=== PATIENT | female | born 1995 | race Caucasian/White ===

== ENCOUNTER 2025-06-06 09:33 | Emergency (ER) | payer OTHER, SELFPAY ==
[2025-06-06 10:03] VITALS: BP 112/69; PULSE 74; RESP 18; TEMP 36.4; O2SAT 98; BMI 28.3
--- NOTE | 2025-06-06 10:03 | ED.FEVER ---
HPI - Fever General Chief Complaint: Upper Respiratory Symptoms Stated Complaint: fever, cough Time Seen by Provider: 06/06/25 10:28 Source: patient Mode of arrival: ambulatory Limitations: no limitations History of Present Illness ED Provider: Reece Frankel HPI Narrative: 30 yold female 10 weeks presents to the ED for coughing, nausea and fevers. patient states no abdominal pain, vomitting, dysuria, hematuria, or vaginal bleeding Related Data Previous Rx's ?Medication ?Instructions ?Recorded pyridoxine (vitamin B6) 10 mg 10 mg PO TID PRN nausea and 06/06/25 tablet vomiting #15 tabs Allergies Allergy/AdvReac Type Severity Reaction Status Date / Time No Known Allergies Allergy Verified 06/06/25 10:04 Review of Systems Review of Systems: Coughing and fevers Yes all other systems are reviewed and are negative [facility] Social History Social History Advance Directives: No Advance Directives Information Provided: Yes Physical Exam Vital Signs: Vital Signs: Last Vital Signs Temp 97.5 F 06/06/25 10:03 Pulse 74 06/06/25 10:03 Resp 18 06/06/25 10:03 BP 112/69 06/06/25 10:03 Pulse Ox 98 06/06/25 10:03 O2 Del Method Room Air 06/06/25 10:03 BMI result Body Mass Index 28.3 Const: General: cooperative, healthy appearing, comfortable, no acute distress, well developed, alert, awake and Physically active Orientation/consciousness: patient oriented x3 HEENT: Head: Yes normal to inspection, Yes No palpable skull fracture present, Yes normocephalic and Yes atraumatic Throat: Yes posterior oropharynx normal, Yes tonsils normal and Yes uvula midline Eyes: General: appearance normal, both eyes and all related structures Neck: Neck: Yes normal visual inspection, Yes full ROM, Yes no lymphadenopathy, Yes no meningeal signs, Yes trachea midline, Yes supple, No anterior neck swelling and No tender Chest: Chest palpation & inspection: normal inspection of the chest and normal palpation of entire chest wall Resp: Effort & Inspection: normal respiratory effort and able to speak in complete sentences Cardio: Jugular venous distension: no JVD Heart sounds: S1 normal heart sound present and S2 normal heart sound present GI: Inspection: Yes normal to inspection Palpation (GI): Soft to palpation, not firm, nontender, no guarding and not rigid : General: Yes no CVA tenderness Back/Spine/Pelvis: Back: no CVA tenderness and No back tenderness Skin: General skin exam: no rashes or lesions noted, elasticity normal and turgor normal Neuro: General: patient oriented x3, gait normal, tone normal, moves all extremities, Normal light touch and pain sensation, no meningeal signs, no focal motor deficits, CN's II-XI intact bilaterally and normal sensation to monofilament Extrem: General: Yes normal to inspection, Yes full ROM and Yes capillary refill normal Psych: Appearance: grossly normal, well kempt and not disheveled Course Course Course Narrative: 30-year-old female with past no medical history here with complaint of fevers, cough, headache she did take Tylenol this morning. Her fever has been 101. She did not get her flu or COVID vaccine. Her 2 children are also sick. There is no recent travel or procedures. She is 10 weeks and falls at [facility] but has no OBGYN related complaints. At this time we will obtain viral panel. this is a RAPID medical screening exam the rest of the history and physical exam is to be done by the main provider. 10:04 AM 06/06/2025 (IVY CARR): Medical Decision Making Medical Decision Making [facility] Narrative: 30 yold female 10 weeks pregantn with URI symptoms. no abdominal complaints or symptoms. swabs ordered. 11:20am: patient all swabs are negative. no RANCH HAND LIVESTOCK/abdominal complatins. Vital sign stable. Not suspecting PE, ecotpic , pneumonia, CHF, GA, kidney stones, pyelonephritits, hyperemesis, or any other life threatening etiology. patient exapline worrisome signs and informed to return to the ED if she has them Differential Diagnosis Differential Diagnoses: The differential diagnosis associated with the presentation includes (covid, influenza, strep, rsv) Admission/Observation Consideration of admission/observation: Escalation of care including admission/observation considered Lab Data [facility] Lab Attestation statement: I reviewed the patient's lab results. Labs: Lab Results 06/06/25 Range/Units 10:11 Influenza Type A (PCR) NEGATIVE (Negative) Influenza Type B (PCR) NEGATIVE (Negative) RSV RNA Qual (PCR) NEGATIVE (Negative) SARS-CoV-2 RNA (RT-PCR) NEGATIVE (Negative) S. pyogenes GrpA BOBO Negative (Negative) Independent Historian Clinical information obtained from an independent historian. History obtained from or confirmed by: Other (patient) Prescription Management I considered prescription management with: Other Discharge Plan Discharge Clinical Impression: Upper respiratory infection Patient Disposition: Home, Self-Care Instructions: Upper Respiratory Infection (ED) Additional Instructions: Recommend follow up with PCP and OBGYN. Return to the ED for any chest pain, shortness of breath, abdominal pain, flank pain, vaginal bleeding, weakness, intractalbe fever, or any other concerning symptoms. Prescriptions: New pyridoxine (vitamin B6) 10 mg tablet 10 mg PO TID PRN (Reason: nausea and vomiting) Qty: 15 0RF Stand Alone Forms: Work/School Release Discharge Date/Time: 06/06/25 11:35 Print Language: Yakut
[2025-06-06 10:39] LABS: IDNOW Serial# 58CA691E; Strep A Nucleic Acid Negative (Negative)
[2025-06-06 11:11] LABS: Resp Syncy Virus RNA Qual PCR NEGATIVE (Negative); SARS COV2 PCR INHOUSE NEGATIVE (Negative)
--- OUTSIDE RECORDS SUMMARY | 2025-06-06 15:13 | XMS_ITS | Clinical Summary ---
Author Organization [facility] Prior to 11/19/[address] [place] [id number] Care Team Providers Care Adjunct Teacher Name Role Phone Unavailable Primary Care Provider Unavailabl e Medications Medication Sig Dispensed Refills Start Date End Date Status ondansetron (ZOFRAN-ODT) 4 MG disintegrating tablet Take 1 tablet (4 mg total) by mouth every 8 (eight) hours as needed for nausea. 12 tablet 0 02/04/2023 Active labetalol (NORMODYNE) 100 MG tablet Take 1 tablet (100 mg total) by mouth 2 (two) times a day. 40 tablet 0 02/04/2023 Active Active Problems No known active problems Social History Tobacco Use Types Packs/Day Years Used Date Smoking Tobacco: Never Assessed Sex and Gender Information Value Date Recorded Sex Assigned at Female 02/04/2023 8:07 PM EDT Gender Identity Not on file Sexual Orientation Not on file Job Start Date Occupation Industry Not on file Not on file Not on file Last Filed Vital Signs Vital Sign Reading Time Taken Comments Blood Pressure 118/80 02/04/2023 10:26 PM EDT Pulse 98 02/04/2023 10:26 PM EDT Temperature 36.5 C (97.7 F) 02/04/2023 10:26 PM EDT Respiratory Rate 18 02/04/2023 10:26 PM EDT Oxygen Saturation 99% 02/04/2023 10:26 PM EDT Inhaled Oxygen Concentration - - Weight 61.2 kg (135 lb) 02/04/2023 7:56 PM EDT Height 154.9 cm (5' 1 ) 02/04/2023 7:56 PM EDT Body Mass Index 25.51 02/04/2023 7:56 PM EDT Plan of Treatment Health Maintenance Due Date Last Done Comments Hepatitis B Vaccines (1 of 3 - 3-dose series) 1993 Hepatitis C Screening 1993 Depression Screening 2005 Preventative Health Evaluation 2011 Cervical Cancer Screening (Pap Smear) 2014 COVID-19 Vaccine (3 - 2024-2 6 season) 2025 12/13/2020, 11/15/2020 Influenza Vaccine (#1) 2025 DTap / Tdap / Td (2 - Td or Tdap) 09/05/2030 09/05/2020 Pneumococcal Vaccine Aged Out No long er eligible based on patient's age to complete this topic RSV Ped < 20 months Aged Out No longe r eligible based on patient's age to complete this topic
--- OUTSIDE RECORDS SUMMARY | 2025-06-06 15:13 | XMS_ITS | Clinical Summary ---
Author Organization [facility] Address [address] [place] [address] Phone Care Team Providers Care Weight Loss Consultant Name Role Phone Suzy Banda MD Primary Care Provider [phone] Allergies No known active allergies Surgical History Surgery Date Site/Laterality Comments WISDOM TOOTH EXTRACTION PROCEDURE: HISTORICAL WISDOM TEETH EXTRACTION; COMMENT: all 4 Medical History Medical History Date Comments Chronic hypertension 08/25/2019 DX:Chronic hypertension; COMMENT: labetalol Family History Medical History Relation Name Comments No Known Problems Brother 1 No Known Problems Brother 2 No Known Problems Daughter No Known Problems Father pt doesn't know him - no available Hx No Known Problems Maternal Grandfather No Known Problems Maternal Grandmother Glaucoma Mother (lost one eye a lready) Hypertension Mother No Known Problems Paternal Grandfather No Known Problems Paternal Grandmother No Known Problems Sister Breast cancer Neg Hx Cervical cancer Neg Hx Colon cancer Neg Hx Ovarian cancer Neg Hx Pancreatic cancer Neg Hx Prostate cancer Neg Hx Uterine cancer Neg Hx Relation Name Status Comments Brother 1 Alive Brother 2 Alive Daughter Alive Father Alive Maternal Grandfather Maternal Grandmother Mother Alive Paternal Grandfather Paternal Grandmother Sister Alive Social History Tobacco Use Types Packs/Day Years Used Date Smoking Tobacco: Never Smokeless Tobacco: Never Alcohol Use Standard Drinks/Week Comments No 0 (1 standard drink = 0.6 oz pur e alcohol) Comments Unknown Sex and Gender Information Value Date Recorded Sex Assigned at Not on file Legal Sex Female 8:57 PM EST Gender Identity Not on file Sexual Orientation Not on file Last Filed Vital Signs Vital Sign Reading Time Taken Comments Blood Pressure 112/98 11/20/2024 9:24 AM EDT Pulse 60 11/20/2024 1:10 PM EDT Temperature 36.5 C (97.7 F) 11/20/2024 9:24 AM EDT Respiratory Rate 18 11/20/2024 1:10 PM EDT Oxygen Saturation 100% 11/20/2024 9:24 AM EDT Inhaled Oxygen Concentration - - Weight 63.5 kg (140 lb) 11/20/2024 9:24 AM EDT Height 157.5 cm (5' 2 ) 11/20/2024 9:24 AM EDT Body Mass Index 25.61 11/20/2024 9:24 AM EDT Plan of Treatment Health Maintenance Due Date Last Done Comments Hepatitis A Vaccines (1 of 2 - Risk 2-dose series) 2012 Hepatitis B Vaccines (1 of 3 - 19+ 3-dose series) 2012 HPV Vaccines (1 - 3-dose SCDM series) 2020 Cervical Cancer Screening: Pap Smear 12/20/2022 12/21/2019 HIV Screening 07/17/2023 Social Influencers of Health Screening 07/17/2023 Depression Screening 06/22/2024 COVID-19 Vaccine ( season) 2025 12/13/2020, 11/15/2020 Influenza Vaccine (#1) 2025 02/28/2020 Hypertension/CHF/CAD Annual BMP Blood Test 11/20/2025 11/20/2024, 07/24/2023, 05/11/2023, Additional history exists Cholesterol Screening (Lipid Panel) 11/27/2025 11/27/2020, 11/27/2020 DTaP,Tdap,and Td Vaccines (4 - Td or Tdap) 12/24/2033 12/25/2023, 09/05/2020, 10/26/2013 RSV Immunization Adult Patients (1 - 1-dose 75+ series) 2068 Hepatitis C Screening Completed 11/27/2020 HIB Vaccines Aged Out No longer eligi ble based on patient's age to complete this topic IPV Vaccines Aged Out No longer eligi ble based on patient's age to complete this topic MMR Vaccines Aged Out No longer eligi ble based on patient's age to complete this topic Meningococcal ACWY Vaccine Aged Out N o longer eligible based on patient's age to complete this topic Meningococcal B Vaccine Aged Out No l onger eligible based on patient's age to complete this topic Pneumococcal Vaccine: Pediatrics (0 to 5 Years) and At-Risk Patients (6 to 49 Years) Aged Out No longer eligible based on patient's age to complete this topic RSV Immunization Patients Under 20 months Aged Out No longer eligible based on patient's age to complete this topic Varicella Vaccines Aged Out No longer eligible based on patient's age to complete this topic Procedures Procedure Name Priority Date/Time Associated Diagnosis Comments COMPREHENSIVE METABOLIC PANEL STAT 11/20/2024 9:21 AM EDT PAP SMEAR Routine 12/21/2019 from Last 3 Months or Most Recently Relevant to Health Maintenance Results * (ABNORMAL) Comprehensive metabolic panel (11/20/2024 9:21 AM EDT) Sodium 140 133 - 145 mmol/L LAB CHEMISTRY METHOD 11/20/2024 9:56 AM [facility] Potassium 3.5 3.5 - 5.5 mmol/L LAB CHEMISTRY METHOD 11/20/2024 9:56 AM [facility] Chloride 106 96 - 110 mmol/L LAB CHEMISTRY METHOD 11/20/2024 9:56 AM [facility] CO2 25 21 - 32 mmol/L LAB CHEMISTRY METHOD 11/20/2024 9:56 AM [facility] Anion Gap 9 3 - 11 LAB CHEMISTRY METHOD 11/20/2024 9:56 AM [facility] Glucose 110(H) 70 - 100 mg/dL LAB CHEMISTRY METHOD 11/20/2024 9:56 AM [facility] BUN 9 5 - 25 mg/dL LAB CHEMISTRY METHOD 11/20/2024 9:56 AM [facility] Creatinine 0.74 0.50 - 1.10 mg/dL LAB CHEMISTRY METHOD 11/20/2024 9:56 AM [facility] eGFR 111 >=60 mL/min/1. 73m2 LAB CHEMISTRY METHOD 11/20/2024 9:56 AM [facility] Comment:Calculation based on the Chronic Kidney Disease Epidemiology Collaboration (CKD-EPI) equation refit without adjustment for race. BUN/Creatinine Ratio 12.2 LAB CHEMISTRY METHOD 11/20/2024 9:56 AM [facility] Calcium 9.6 8.5 - 10.5 mg/dL LAB CHEMISTRY METHOD 11/20/2024 9:56 AM [facility] AST (SGOT) 20 10 - 42 unit/L LAB CHEMISTRY METHOD 11/20/2024 9:56 AM [facility] ALT (SGPT) 21 10 - 60 unit/L LAB CHEMISTRY METHOD 11/20/2024 9:56 AM [facility] Alkaline Phosphatase 54 42 - 121 unit/L LAB CHEMISTRY METHOD 11/20/2024 9:56 AM [facility] Total Protein 7.7 6.0 - 8.0 g/dL LAB CHEMISTRY METHOD 11/20/2024 9:56 AM [facility] Albumin 3.9 3.2 - 5.0 g/dL LAB CHEMISTRY METHOD 11/20/2024 9:56 AM [facility] Total Bilirubin 0.5 0.0 - 1.4 mg/dL LAB CHEMISTRY METHOD 11/20/2024 9:56 AM [facility] Blood Venous blood specimen / Unknown Venipuncture / Unknown 11/20/2024 9:21 AM EDT 11/20/2024 9:25 AM EDT us Zachary Moreno MD LAB BLOOD ORDERABLES Final Result [facility] [address] [place] [address], * Pap smear (12/21/2019) 12/21/2019 Narrative HISTORICAL TESTING LAB RESULTING AGENCY - 12/26/2019 12:26 PM EDT [id number] THINPREP PAP, IMAGED: NEGATIVE FOR SQUAMOUS INTRAEPITHELIAL LESION AND MALIGNANCY . GUERRERO FREEMAN(ASCP) (CASE ELECTRONICALLY SIGNED 12 26 2019) ADEQUACY: SATISFACTORY ENDOCERVICAL/TRANSFORMATION ZONE COMPONENT PRESENT. SOURCE: THINPREP PAP HPV IF ASCUS, CERVICAL, IMAGED CLINICAL INFORMATION: HPV IF DIAGNOSIS OF ASCUS. LMP 3-9-20, . PAP HX NEG. Z12.4 Z34.81 Betina Case DO LAB CYTOLOGY ORDERABLES Final Result HISTORICAL TESTING LAB RESULTING AGENCY from Last 3 Months or Most Recently Relevant to Health Maintenance Insurance MEDICAID - [place] Care Teams Weight Loss Consultant Relationship Specialty Start Date End Date Suzy Banda MD [address] [place] [address] PCP - General Pediatrics 11/20/24
== END 2025-06-06 11:35 | disposition home or self-care (01) ==
PROVIDERS: Emergency Provider Emergency Medicine; PCP Internal Medicine
DX: J06.9 Acute upper respiratory infection, unspecified (principal); R05.9 Cough, unspecified; R50.9 Fever, unspecified; Z03.818 Encounter for observation for suspected exposure to other biological agents ruled out
CPT/HCPCS: 87637; 87651; 99281; 99283